=== PATIENT | female | born 1945 | race Caucasian/White ===

== ENCOUNTER 2017-12-26 08:00 | Outpatient (RCR) | payer SELFPAY ==
--- NOTE | 2017-12-15 14:51 | DT_ITS ---
This patient was seen during an EMR downtime December 08, 2017 - December 15, 2017. This patient may have a combination of paper and electronic documentation or all paper documentation. All documentation is viewable within the e-chart portion of [facility] for each patient visit.
== END 2018-01-03 23:59 ==
LOC: NS 08:00
PROVIDERS: Family Provider Family Medicine; PCP Family Medicine; Visit Provider Family Medicine
DX: E66.9 Obesity, unspecified (principal); I10 Essential (primary) hypertension; E78.5 Hyperlipidemia, unspecified; Z68.32 Body mass index [BMI] 32.0-32.9, adult; Z71.3 Dietary counseling and surveillance
CPT/HCPCS: 97803

== ENCOUNTER 2018-01-16 08:03 | Outpatient (RCR) | payer SELFPAY | END 2018-02-03 23:59 | LOC: NS 08:03 | PROVIDERS: Family Provider Family Medicine; PCP Family Medicine; Visit Provider Family Medicine | DX: E66.9 Obesity, unspecified (principal); I10 Essential (primary) hypertension; E78.5 Hyperlipidemia, unspecified; Z68.32 Body mass index [BMI] 32.0-32.9, adult; Z71.3 Dietary counseling and surveillance | CPT/HCPCS: 97803 ==

== ENCOUNTER 2018-02-20 08:20 | Outpatient (RCR) | payer SELFPAY | END 2018-03-06 23:59 | LOC: NS 08:20 | PROVIDERS: Family Provider Family Medicine; PCP Family Medicine; Visit Provider Family Medicine | DX: E66.9 Obesity, unspecified (principal); I10 Essential (primary) hypertension; E78.5 Hyperlipidemia, unspecified; Z68.32 Body mass index [BMI] 32.0-32.9, adult; Z71.3 Dietary counseling and surveillance | CPT/HCPCS: 97803 ==

== ENCOUNTER 2018-04-03 08:00 | Outpatient (RCR) | payer SELFPAY | END 2018-04-05 23:59 | LOC: NS 08:00 | PROVIDERS: Family Provider Family Medicine; PCP Family Medicine; Visit Provider Family Medicine | DX: E66.9 Obesity, unspecified (principal); I10 Essential (primary) hypertension; E78.5 Hyperlipidemia, unspecified; Z68.32 Body mass index [BMI] 32.0-32.9, adult; Z71.3 Dietary counseling and surveillance | CPT/HCPCS: 97803 ==

== ENCOUNTER 2018-04-17 08:20 | Outpatient (RCR) | payer SELFPAY | END 2018-04-17 23:59 | disposition home or self-care (01) | LOC: NS 08:20 | PROVIDERS: Family Provider Family Medicine; PCP Family Medicine; Referring Provider Family Medicine; Visit Provider Family Medicine | DX: E66.9 Obesity, unspecified (principal); I10 Essential (primary) hypertension; E78.5 Hyperlipidemia, unspecified; Z68.32 Body mass index [BMI] 32.0-32.9, adult; Z71.3 Dietary counseling and surveillance | CPT/HCPCS: 97803 ==

== ENCOUNTER 2020-04-25 07:28 | Day surgery (SDC) | payer MEDICARE, SELFPAY ==
[2020-04-05 13:18] VITALS: BMI 29.7
[2020-04-25 07:52] VITALS: BP 112/68; PULSE 72; RESP 16; TEMP 36.4; O2SAT 97; BMI 28.7
--- NOTE | 2020-04-25 07:53 | PCM.HP.BLA ---
Problem List (1) Personal history of colonic polyps Status: Chronic History and Physical Date of Admission: 04/25/20 Intake Visit Reasons: C-Scope Document Control Assistant Required: No Is patient in pain?: No Allergies lisinopril Allergy (Unknown, Verified 04/05/20 13:19) Unknown Sulfa (Sulfonamide Antibiotics) Allergy (Unknown, Verified 04/05/20 13:19) Unknown Medications amlodipine 10 mg tablet 10 mg PO DAILY tab 04/05/20 [History Confirmed 04/05/20] aspirin 325 mg tablet 650 mg PO DAILY PRN tab 04/05/20 [History Confirmed 04/05/20] aspirin 81 mg tablet,delayed release 81 mg PO DAILY 04/05/20 [History Confirmed 04/05/20] atorvastatin 80 mg tablet 80 mg PO QHS tab 04/05/20 [History Confirmed 04/05/20] calcium carbonate 600 mg (1,500 mg)-vitamin D3 2,500 unit capsule cap PO 04/05/20 [History Confirmed 04/05/20] cetirizine 10 mg tablet 20 mg PO DAILY tab 04/05/20 [History Confirmed 04/05/20] chlorthalidone 25 mg tablet 12.5 mg PO DAILY tab 04/05/20 [History Confirmed 04/05/20] diphenhydramine HCl 25 mg capsule 25 mg PO QHS PRN 04/05/20 [History Confirmed 04/05/20] flaxseed oil 1,000 mg capsule 1,000 mg PO DAILY 04/05/20 [History Confirmed 04/05/20] losartan 100 mg tablet 100 mg PO DAILY tab 04/05/20 [History Confirmed 04/05/20] omega 7-wkw-ylh-fish oil 1,200 mg (144 mg-216 mg) capsule cap PO 04/05/20 [History Confirmed 04/05/20] omeprazole 20 mg capsule,delayed release 20 mg PO DAILY cap 04/05/20 [History Confirmed 04/05/20] potassium chloride 20 mEq tablet,extended release(part/cryst) 20 meq PO BID tab 04/05/20 [History Confirmed 04/05/20] PFSH Medical History (Updated 04/05/20 @ 13:27 by Orin Rocha) Rash (Acute) Arthritis (Acute) Hypertension (Chronic) Sleep apnea (Acute) Personal history of colonic polyps (Chronic) Surgical History (Updated 04/05/20 @ 13:27 by Orin Rocha) Hx of total hysterectomy (Acute) History of colposcopy (Acute) History of bladder suspension procedure (Acute) Hx of appendectomy (Acute) Hx of colonoscopy (Acute) Hx of benign neoplasm of ovary (Acute) Hx of bilateral salpingo-oophorectomy (Acute) History of esophageal dilatation (Acute) History of esophagogastroduodenoscopy (EGD) (Acute) Family History Brother Bladder cancer Liver cancer Hypertension High cholesterol Mother CVA (cerebral vascular accident) Hypertension Son High cholesterol Hypertension Social History (Updated 04/05/20 @ 13:[address] Antelmo Brito MD) Smoking Status: Former smoker second hand exposure: No alcohol intake: current alcohol intake frequency: a few times a week Alcohol type: wine substance use type: does not use caffeine: Yes frequency: 3-4 times per week HPI HPI HPI: ROBYN GIORDANO, is a 75 F who presents to the office today for surgical consultation regarding a personal history of colon polyp. She is referred by her primary care physician Dr. Berto Brito, III intermittent compromise surgical consult recommendations will return to him. She denies any symptoms. No family history of colon cancer. No bright red blood per rectum or melena. No abdominal pain. No unexpected weight loss. On January 12, [address] El Willis she had a colonoscopy done. That was done because of a left adnexal mass and an elevated CEA. The colonoscopy showed multiple diverticula of the sigmoid colon and in the descending colon. A 5 mm polyp was found in the ascending colon and were removed with cold forceps. Final pathology was notable for a sessile serrated polyp. Follow-up colonoscopy at 5 years recommended. She states that she is enjoying a good quality of life. Both of her parents apparently lived into their 90s. HPI HPI HPI: ROBYN GIORDANO, is a 75 F who presents to the office today for Exam Const General: cooperative, healthy appearing, comfortable, no acute distress Nutritional Appearance: average body habitus Orientation: alert, awake HENMT Head: normal to inspection Resp Effort & Inspection: normal respiratory effort Auscultation: clear to auscultation bilaterally Cardio Rate: regular rate Rhythm: regular rhythm GI Palpation: soft, no hepatosplenomegaly Auscultation: normal bowel sounds Neuro Cognition: normal cognition Extrem General: no calf tenderness Other: Mild 1+ bilateral lower extremity edema. Psych Affect: normal affect Assessment & Plan Problems 1. Personal history of colonic polyps Z86.010 Plan 75-year-old female with a personal history of a sessile serrated polyp of the ascending colon. She is enjoying a very high quality of life. I propose for her a colonoscopy with possible biopsy or polypectomy as indicated. She does take aspirin and flaxseed oil and fish oil which we will have her hold prior to the intervention. Her last procedure required significant amount of narcotic and Versed so we will utilize monitored anesthesia care. She has had an opportunity to ask and have questions answered. I appreciate the opportunity of assisting with her surgical care. The patient has mild edema of her lower extremity. She is not clear as to the etiology. Again she states that this is not new. She is on a very low-dose of a diuretic. She will consider possibly utilizing some vzpq-awo-yfjqzgi support hose. Of course she will have routine primary care follow-up as well. Copy: Dr. Berto Brito, III Antelmo Brito M.D., F.A.C.S. Orders Orders: Colonoscopy Today Coding Level of Care Code 24744 Diagnoses Personal history of colonic polyps Z86.010 I have re-examined the patient. There are no clinical changes since date of exam. Procedure Criteria Procedure Type: Elective COVID Risk Discussion: The surgeon/proceduralist and patient have discussed in detail the risk of exposure to and/or potential harm posed by the COVID-19 virus with having a surgery/procedure at this time versus the risk of delaying the surgery/procedure. It is not possible to know either the risk of delaying the surgery or procedure or chance of getting an infection with perfect accuracy, but a joint decision was made between the patient and the surgeon/proceduralist to proceed at this time with the scheduled surgery/procedure as indicated on the consent form.
[2020-04-25] MEDS: Lactated Ringers 1,000 ML 100 ML IV (08:06)
[2020-04-25 09:00] VITALS: BP 105/55; BP 112/68; PULSE 59; RESP 16; TEMP 36.2; O2SAT 93
--- NOTE | 2020-04-25 09:01 | OP.COLON_ITS ---
Patient Name: Aliza Schaeffer Procedure Date: 04/25/2020 8:22 AM Date of : 1945 Age: 75 Procedure: Colonoscopy Indications: High risk colon cancer surveillance: Personal history of colonic polyps Providers: Antelmo Brito MD Referring MD: Berto Brito Iii Medicines: See the Anesthesia note for documentation of the administered medications Patient Profile: Last Colonoscopy: January 2015. Complications: No immediate complications. Procedure: Pre-Anesthesia Assessment: - Prior to the procedure, a History and Physical was performed, and patient medications and allergies were reviewed. The patient's tolerance of previous anesthesia was also reviewed. The risks and benefits of the procedure and the sedation options and risks were discussed with the patient. All questions were answered, and informed consent was obtained. Prior Anticoagulants: The patient has taken no previous anticoagulant or antiplatelet agents. ASA Grade Assessment: II - A patient with mild systemic disease. After reviewing the risks and benefits, the patient was deemed in satisfactory condition to undergo the procedure. After I obtained informed consent, the scope was passed under direct vision. Throughout the procedure, the patient's blood pressure, pulse, and oxygen saturations were monitored continuously. The colonoscope was introduced through the anus and advanced to the ascending colon for evaluation. This was the intended extent. The colonoscopy was extremely difficult due to inadequate bowel prep. The patient tolerated the procedure well. The quality of the bowel preparation was inadequate. Scope In: 8:42:00 AM Scope Out: 8:55:44 AM Total Procedure Duration Time 0 hours 13 minutes 44 seconds Findings: Hemorrhoids were found on perianal exam. Multiple diverticula were found in the sigmoid colon and descending colon. Impression: - Preparation of the colon was inadequate. - Hemorrhoids found on perianal exam. - Diverticulosis in the sigmoid colon and in the descending colon. - No specimens collected. Recommendation: - Discharge patient to home. - Clear liquid diet. - Continue present medications. - Repeat colonoscopy in 1 day for surveillance. Repeat bowel prep and repeat colonoscopy with adult scope tomorrow Procedure Code(s): --- Professional --- 51045, 53, Colonoscopy, flexible; diagnostic, including collection of specimen(s) by brushing or washing, when performed (separate procedure) Diagnosis Code(s): --- Professional --- Z86.010, Personal history of colonic polyps K64.9, Unspecified hemorrhoids K57.30, Diverticulosis of large intestine without perforation or abscess without bleeding CPT copyright 2017 [employer]. All rights reserved. The codes documented in this report are preliminary and upon vocational childcare teacher review may be revised to meet current compliance requirements. Antelmo Brito MD 04/25/2020 9:00:53 AM This report has been signed electronically. Number of Addenda: 0 Note Initiated On: 04/25/2020 8:22 AM
--- NOTE | 2020-04-25 09:01 | OP.CCLET_ITS ---
04/25/2020 Berto Brito Iii [address] [place] [address] Re : Colonoscopy procedure for Aliza Schaeffer Dear Dr. Brito This procedure was performed on Saturday, April 25, 2020. My impressions and recommendations are as follows: Impressions : - Preparation of the colon was inadequate. - Hemorrhoids found on perianal exam. - Diverticulosis in the sigmoid colon and in the descending colon. - No specimens collected. Recommendations : - Discharge patient to home. - Clear liquid diet. - Continue present medications. - Repeat colonoscopy in 1 day for surveillance. Repeat bowel prep and repeat colonoscopy with adult scope tomorrow My findings are described in the full procedure note, which is enclosed. If I can be of further assistance, please feel free to contact me at Doctor phone number(s): Work: . Sincerely, Antelmo Brito MD 04/25/2020 9:00:53 AM This report has been signed electronically.
[2020-04-25 09:05] VITALS: BP 112/68; BP 114/62; PULSE 57; RESP 16; O2SAT 99
[2020-04-25 09:10] VITALS: BP 112/68; BP 125/69; PULSE 58; RESP 18; O2SAT 100
[2020-04-25 09:15] VITALS: BP 112/68; BP 132/65; PULSE 57; RESP 16; TEMP 36.3; O2SAT 98
[2020-04-25 09:40] VITALS: BP 112/68
== END 2020-04-25 09:41 | disposition home or self-care (01) ==
LOC: EN 07:28 → AC 07:29
PROVIDERS: Anesthesiology; PCP Family Medicine; Referring Provider Family Medicine; Visit Provider Surgery
PROC: 0DJD8ZZ Inspection of Lower Intestinal Tract, Via Natural or Artificial Opening Endoscopic (ICD-10-PCS; CPT 45378; principal; 2020-04-25 08:25)
DX: Z12.11 Encounter for screening for malignant neoplasm of colon (principal); K64.9 Unspecified hemorrhoids; K57.30 Diverticulosis of large intestine without perforation or abscess without bleeding; K21.9 Gastro-esophageal reflux disease without esophagitis; I10 Essential (primary) hypertension; E78.00 Pure hypercholesterolemia, unspecified; M19.90 Unspecified osteoarthritis, unspecified site; Z86.010 Personal history of colon polyps; Z79.82 Long term (current) use of aspirin; Z79.899 Other long term (current) drug therapy; Z87.891 Personal history of nicotine dependence; Z20.828 Contact with and (suspected) exposure to other viral communicable diseases
CPT/HCPCS: G0105; 87635; C9803; J7120; U0003

== ENCOUNTER 2020-04-26 05:27 | Day surgery (SDC) | payer MEDICARE, SELFPAY ==
[2020-04-25 07:52] VITALS: BMI 28.7
[2020-04-26] VITALS (7 sets, daily range): BP systolic 108–123; BP diastolic 59–68; PULSE 64–76; RESP 16; TEMP 36.2–36.4; O2SAT 97–100; BMI 28.9
--- NOTE | 2020-04-26 05:38 | PCM.HP.BLA ---
Problem List (1) Personal history of colonic polyps Status: Chronic History and Physical Date of Admission: 04/26/20 Problem List (1) Personal history of colonic polyps Status: Chronic History and Physical Date of Admission: 04/25/20 Intake Visit Reasons: C-Scope Digital Editor Required: No Is patient in pain?: No Allergies lisinopril Allergy (Unknown, Verified 04/05/20 13:19) Unknown Sulfa (Sulfonamide Antibiotics) Allergy (Unknown, Verified 04/05/20 13:19) Unknown Medications amlodipine 10 mg tablet 10 mg PO DAILY tab 04/05/20 [History Confirmed 04/05/20] aspirin 325 mg tablet 650 mg PO DAILY PRN tab 04/05/20 [History Confirmed 04/05/20] aspirin 81 mg tablet,delayed release 81 mg PO DAILY 04/05/20 [History Confirmed 04/05/20] atorvastatin 80 mg tablet 80 mg PO QHS tab 04/05/20 [History Confirmed 04/05/20] calcium carbonate 600 mg (1,500 mg)-vitamin D3 2,500 unit capsule cap PO 04/05/20 [History Confirmed 04/05/20] cetirizine 10 mg tablet 20 mg PO DAILY tab 04/05/20 [History Confirmed 04/05/20] chlorthalidone 25 mg tablet 12.5 mg PO DAILY tab 04/05/20 [History Confirmed 04/05/20] diphenhydramine HCl 25 mg capsule 25 mg PO QHS PRN 04/05/20 [History Confirmed 04/05/20] flaxseed oil 1,000 mg capsule 1,000 mg PO DAILY 04/05/20 [History Confirmed 04/05/20] losartan 100 mg tablet 100 mg PO DAILY tab 04/05/20 [History Confirmed 04/05/20] omega 2-uqn-erb-fish oil 1,200 mg (144 mg-216 mg) capsule cap PO 04/05/20 [History Confirmed 04/05/20] omeprazole 20 mg capsule,delayed release 20 mg PO DAILY cap 04/05/20 [History Confirmed 04/05/20] potassium chloride 20 mEq tablet,extended release(part/cryst) 20 meq PO BID tab 04/05/20 [History Confirmed 04/05/20] PFSH Medical History (Updated 04/05/20 @ 13:27 by Orin Rocha) Rash (Acute) Arthritis (Acute) Hypertension (Chronic) Sleep apnea (Acute) Personal history of colonic polyps (Chronic) Surgical History (Updated 04/05/20 @ 13:27 by Orin Rocha) Hx of total hysterectomy (Acute) History of colposcopy (Acute) History of bladder suspension procedure (Acute) Hx of appendectomy (Acute) Hx of colonoscopy (Acute) Hx of benign neoplasm of ovary (Acute) Hx of bilateral salpingo-oophorectomy (Acute) History of esophageal dilatation (Acute) History of esophagogastroduodenoscopy (EGD) (Acute) Family History Brother Bladder cancer Liver cancer Hypertension High cholesterol Mother CVA (cerebral vascular accident) Hypertension Son High cholesterol Hypertension Social History (Updated 04/05/20 @ 13:[address] Antelmo Brito MD) Smoking Status: Former smoker second hand exposure: No alcohol intake: current alcohol intake frequency: a few times a week Alcohol type: wine substance use type: does not use caffeine: Yes frequency: 3-4 times per week HPI HPI HPI: ROBYN GIORDANO, is a 75 F who presents to the office today for surgical consultation regarding a personal history of colon polyp. She is referred by her primary care physician Dr. Berto Brito, III intermittent compromise surgical consult recommendations will return to him. She denies any symptoms. No family history of colon cancer. No bright red blood per rectum or melena. No abdominal pain. No unexpected weight loss. On January 12, [address] El Willis she had a colonoscopy done. That was done because of a left adnexal mass and an elevated CEA. The colonoscopy showed multiple diverticula of the sigmoid colon and in the descending colon. A 5 mm polyp was found in the ascending colon and were removed with cold forceps. Final pathology was notable for a sessile serrated polyp. Follow-up colonoscopy at 5 years recommended. She states that she is enjoying a good quality of life. Both of her parents apparently lived into their 90s. HPI HPI HPI: ROBYN GIORDANO, is a 75 F who presents to the office today for Exam Const General: cooperative, healthy appearing, comfortable, no acute distress Nutritional Appearance: average body habitus Orientation: alert, awake HENNM Head: normal to inspection Resp Effort & Inspection: normal respiratory effort Auscultation: clear to auscultation bilaterally Cardio Rate: regular rate Rhythm: regular rhythm GI Palpation: soft, no hepatosplenomegaly Auscultation: normal bowel sounds Neuro Cognition: normal cognition Extrem General: no calf tenderness Other: Mild 1+ bilateral lower extremity edema. Psych Affect: normal affect Assessment & Plan Problems 1. Personal history of colonic polyps Z86.010 Plan 75-year-old female with a personal history of a sessile serrated polyp of the ascending colon. She is enjoying a very high quality of life. I propose for her a colonoscopy with possible biopsy or polypectomy as indicated. She does take aspirin and flaxseed oil and fish oil which we will have her hold prior to the intervention. Her last procedure required significant amount of narcotic and Versed so we will utilize monitored anesthesia care. She has had an opportunity to ask and have questions answered. I appreciate the opportunity of assisting with her surgical care. The patient has mild edema of her lower extremity. She is not clear as to the etiology. Again she states that this is not new. She is on a very low-dose of a diuretic. She will consider possibly utilizing some zthh-lmw-kekougx support hose. Of course she will have routine primary care follow-up as well. Copy: Dr. Berto Brito, III Antelmo Brito M.D., F.A.C.S. Orders Orders: Colonoscopy Today Coding Level of Care Code 20323 Diagnoses Personal history of colonic polyps Z86.010 I have re-examined the patient. There are no clinical changes since date of exam. Procedure Criteria Procedure Type: Elective COVID Risk Discussion: The surgeon/proceduralist and patient have discussed in detail the risk of exposure to and/or potential harm posed by the COVID-19 virus with having a surgery/procedure at this time versus the risk of delaying the surgery/procedure. It is not possible to know either the risk of delaying the surgery or procedure or chance of getting an infection with perfect accuracy, but a joint decision was made between the patient and the surgeon/proceduralist to proceed at this time with the scheduled surgery/procedure as indicated on the consent form. Yesterday we attempted to perform a colonoscopy. This was greatly hindered by the lack of an adequate bowel prep. Rather than continue to force the issue with poor visualization I elected in the ascending colon to abort the procedure reprepped the bowel and have the patient return. She has had an opportunity to ask and have questions answered. She returns today after further bowel prepping. Antelmo Brito M.D., F.A.C.S.
[2020-04-26] MEDS: Lactated Ringers 1,000 ML 75 ML IV (06:18)
--- NOTE | 2020-04-26 07:01 | OP.CCLET_ITS ---
04/26/2020 Berto Brito I[address] [place] [address] Re : Colonoscopy procedure for Aliza Schaeffer Dear Dr. Brito This procedure was performed on Sunday, April 26, 2020. My impressions and recommendations are as follows: Impressions : - Hemorrhoids found on perianal exam. - Diverticulosis in the sigmoid colon and in the descending colon. - Tortuous colon. - No specimens collected. Recommendations : - Discharge patient to home. - Resume previous diet. - Continue present medications. - Repeat colonoscopy is not recommended due to current age (66 years or older) for screening purposes. My findings are described in the full procedure note, which is enclosed. If I can be of further assistance, please feel free to contact me at Doctor phone number(s): Work: . Sincerely, Antelmo Brito MD 04/26/2020 7:01:11 AM This report has been signed electronically.
--- NOTE | 2020-04-26 07:01 | OP.COLON_ITS ---
Patient Name: Aliza Schaeffer Procedure Date: 04/26/2020 6:10 AM Date of : 1945 Age: 75 Procedure: Colonoscopy Indications: High risk colon cancer surveillance: Personal history of colonic polyps Providers: Antelmo Brito MD Medicines: See the Anesthesia note for documentation of the administered medications Patient Profile: Last Colonoscopy: Yesterday, failied bowel prep Complications: No immediate complications. Procedure: Pre-Anesthesia Assessment: - Prior to the procedure, a History and Physical was performed, and patient medications and allergies were reviewed. The patient's tolerance of previous anesthesia was also reviewed. The risks and benefits of the procedure and the sedation options and risks were discussed with the patient. All questions were answered, and informed consent was obtained. Prior Anticoagulants: The patient has taken no previous anticoagulant or antiplatelet agents. ASA Grade Assessment: II - A patient with mild systemic disease. After reviewing the risks and benefits, the patient was deemed in satisfactory condition to undergo the procedure. After I obtained informed consent, the scope was passed under direct vision. Throughout the procedure, the patient's blood pressure, pulse, and oxygen saturations were monitored continuously. The adult colonoscope was introduced through the anus and advanced to the cecum, identified by appendiceal orifice and ileocecal valve. The colonoscopy was technically difficult and complex due to a tortuous colon. Successful completion of the procedure was aided by applying abdominal pressure. The patient tolerated the procedure well. The quality of the bowel preparation was good. The ileocecal valve and the appendiceal orifice were photographed. Scope In: 6:33:42 AM Scope Withdrawal Time 0 hours 6 minutes 12 seconds Scope Out: 6:54:00 AM Total Procedure Duration Time 0 hours 20 minutes 18 seconds Findings: Hemorrhoids were found on perianal exam. Multiple diverticula were found in the sigmoid colon and descending colon. The colon (entire examined portion) was significantly tortuous. Advancing the scope required changing the patient to a supine position and using manual pressure. Impression: - Hemorrhoids found on perianal exam. - Diverticulosis in the sigmoid colon and in the descending colon. - Tortuous colon. - No specimens collected. Recommendation: - Discharge patient to home. - Resume previous diet. - Continue present medications. - Repeat colonoscopy is not recommended due to current age (66 years or older) for screening purposes. Procedure Code(s): --- Professional --- 54089, Colonoscopy, flexible; diagnostic, including collection of specimen(s) by brushing or washing, when performed (separate procedure) Diagnosis Code(s): --- Professional --- Z86.010, Personal history of colonic polyps K64.9, Unspecified hemorrhoids K57.30, Diverticulosis of large intestine without perforation or abscess without bleeding Q43.8, Other specified congenital malformations of intestine CPT copyright 2017 [employer]. All rights reserved. The codes documented in this report are preliminary and upon coal and ash supervisor review may be revised to meet current compliance requirements. Antelmo Brito MD 04/26/2020 7:01:11 AM This report has been signed electronically. Number of Addenda: 0 Note Initiated On: 04/26/2020 6:10 AM
== END 2020-04-26 07:42 | disposition home or self-care (01) ==
LOC: EN 05:28 → AC 05:28
PROVIDERS: PCP Family Medicine; Referring Provider Family Medicine; Visit Provider Surgery
PROC: 0DJD8ZZ Inspection of Lower Intestinal Tract, Via Natural or Artificial Opening Endoscopic (ICD-10-PCS; CPT 45378; principal; 2020-04-26 06:25)
DX: Z12.11 Encounter for screening for malignant neoplasm of colon (principal); Z86.010 Personal history of colon polyps; K64.9 Unspecified hemorrhoids; K57.30 Diverticulosis of large intestine without perforation or abscess without bleeding; K21.9 Gastro-esophageal reflux disease without esophagitis; I10 Essential (primary) hypertension; E78.00 Pure hypercholesterolemia, unspecified; M19.90 Unspecified osteoarthritis, unspecified site; G47.30 Sleep apnea, unspecified; R60.0 Localized edema; Z79.82 Long term (current) use of aspirin; Z79.899 Other long term (current) drug therapy; Z87.891 Personal history of nicotine dependence
CPT/HCPCS: G0105; J7120; J2405